=== PATIENT | female | born 1955 | race Hispanic/Latino ===

== ENCOUNTER 2021-03-21 18:14 | Emergency (ER) | payer OTHER ==
[~2021-03-21] VITALS: Ht 157.5 cm; Wt 104.3 kg
[2021-03-21 20:20] VITALS: BP 144/81
[2021-03-21 20:24] VITALS: BP 144/81
[2021-03-21] MEDS ORDERED: DIAZEPAM 5 MG/ML 2 ML SYG IM ONE (22:00)
[2021-03-21 22:05] VITALS: BP 142/40
[2021-03-21 22:55] VITALS: BP 155/82
[2021-03-21] MEDS ORDERED: KETOROLAC 30MG VIAL (30MG/ML) ONE (22:56)
[2021-03-21] MEDS ORDERED: KETOROLAC 30MG VIAL (30MG/ML) IV ONE (23:00)
[2021-03-22 00:03] VITALS: BP 148/78
[2021-03-22 01:38] VITALS: BP 148/52
== END 2021-03-22 02:01 | disposition home or self-care (01) ==
LOC: EDH 18:14
DX: S43.014A Anterior dislocation of right humerus, initial encounter (principal); S40.812A Abrasion of left upper arm, initial encounter; E78.00 Pure hypercholesterolemia, unspecified; E11.9 Type 2 diabetes mellitus without complications; E66.9 Obesity, unspecified; Z79.1 Long term (current) use of non-steroidal anti-inflammatories (NSAID); Z85.3 Personal history of malignant neoplasm of breast; X58.XXXA Exposure to other specified factors, initial encounter; Y93.89 Activity, other specified; Y92.89 Other specified places as the place of occurrence of the external cause; Y99.8 Other external cause status
CPT/HCPCS: 23650; 73020 ×2; 73030 ×2; 96372; 96374; 99285; J1885; J3360

== ENCOUNTER 2021-03-26 15:16 | Emergency (ER) | payer OTHER ==
[~2021-03-26] VITALS: Ht 157.5 cm; Wt 103.9 kg
[2021-03-26] MEDS ORDERED: MIDAZOLAM HCL 5 MG/ML 2ML VIAL IV ONE (17:39)
[2021-03-26 19:31] VITALS: BP 147/67
== END 2021-03-26 19:47 | disposition home or self-care (01) ==
LOC: EDH 15:16
DX: S43.084A Other dislocation of right shoulder joint, initial encounter (principal); E11.9 Type 2 diabetes mellitus without complications; E78.00 Pure hypercholesterolemia, unspecified; Z98.890 Other specified postprocedural states; X58.XXXA Exposure to other specified factors, initial encounter; Y93.89 Activity, other specified; Y92.89 Other specified places as the place of occurrence of the external cause; Y99.8 Other external cause status
CPT/HCPCS: 23650; 73020; 73030; 99284; J2250